=== PATIENT | female | born 1960 | race Caucasian/White ===

== ENCOUNTER 2016-11-02 17:10 | Emergency (ER) | payer OTHER ==
[2016-11-02 17:22] VITALS: BP 120/62; PULSE 87; TEMP 98.1; BMI 26.2
--- NOTE | 2016-11-02 17:39 | PDOC ---
History of Present Illness - General History Source: Care Provider Exam Limitations: Other (downs syndrome) <Merle Castillo - Last Filed: 11/02/16 17:36> - History of Present Illness Initial Comments: 11/02/16 17:39 The patient is a 56 year old female, with a significant past medical history of down syndrome, who presents to the emergency department with an abrasion to her right knee s/p mechanical fall. The patient denies loss of consciousness or pain. As per aide, a bandage was placed after the fall. The patient presents for evaluation because she is scheduled to go to a water [employer] tomorrow. She denies chest pain, shortness of breath, headache and dizziness. She denies fever, chills, nausea, vomit, diarrhea and constipation. She denies dysuria, frequency, urgency and hematuria. Allergies: NKDA PCP - <Melida Samson - Last Filed: 11/02/16 17:40> - General Chief Complaint: Injury Stated Complaint: RT KNEE PAIN Past History - Past Medical History Cardiac Disorders: Yes (cardiac valve defect) GI Disorders: Yes (colostomy) Hypercholesterolemia: Yes Psychiatric Problems: Yes (behavior d/o) Thyroid Disease: Yes (Hypothyroid) Other medical history: down's syndrome, hearing impairment (hearing aid rt ear) , dysphagia - Surgical History Abdominal Surgery: Yes (colostomy) - Psycho/Social/Smoking Cessation Hx Anxiety: No Suicidal Ideation: No Smoking Status: No Smoking History: Never smoked Have you smoked in the past 12 months: No Number of Cigarettes Smoked Daily: 0 Information on smoking cessation initiated: No Hx Alcohol Use: No Drug/Substance Use Hx: No Substance Use Type: None Hx Substance Use Treatment: No <Merle Castillo - Last Filed: 11/02/16 17:36> <Melida Samson - Last Filed: 11/02/16 17:40> - Past Medical History Allergies/Adverse Reactions: Allergies Allergy/AdvReac Type Severity Reaction Status Date / Time levofloxacin [From Levaquin] Allergy Mild Hives Verified 03/20/16 10:03 Quinolones Allergy Verified 03/20/16 10:03 Home Medications: Ambulatory Orders Calcium Phosphate Trib/Vit D3 [Citracal + D3 Gummies] 2 each PO BID 02/08/15 Clonazepam 0.25 mg PO TID 02/08/15 Clotrimazole 1 applic TP BID 02/08/15 Esomeprazole Mag Trihydrate [Nexium] 40 mg PO BID 02/08/15 Levothyroxine [Synthroid -] 0.0685 mg PO DAILY 02/08/15 Metoclopramide HCl 10 mg PO HS 02/08/15 Mineral Oil/Hydrophil Petrolat [Aquaphor Ointment] 1 applic TP TID 02/08/15 Oxybutynin Chloride 5 mg PO HS 02/08/15 Paroxetine HCl 30 mg PO DAILY 02/08/15 Polyethylene Glycol 3350 [Glycolax] 17 gm PO DAILY 02/08/15 Propylene Glycol/Peg 400 [Systane Ultra 0.3-0.4% Eye Drp] 1 drop OU BID Simvastatin [Zocor -] 20 mg PO HS 02/08/15 Denosumab [Prolia] 60 mg SQ ASDIR 03/20/16 Review of Systems - Review of Systems Able to Perform ROS?: Yes Comments:: 11/02/16 17:39 GENERAL/CONSTITUTIONAL: No fever or chills. No weakness. HEAD, EYES, EARS, NOSE AND THROAT: No change in vision. No ear pain or discharge. No sore throat. CARDIOVASCULAR: No chest pain or shortness of breath. RESPIRATORY: No cough, wheezing, or hemoptysis. GASTROINTESTINAL: No nausea, vomiting, diarrhea or constipation. GENITOURINARY: No dysuria, frequency, or change in urination. MUSCULOSKELETAL: No joint or muscle swelling or pain. No neck or back pain. SKIN: (+) abrasion to right knee. No rash NEUROLOGIC: No headache, vertigo, loss of consciousness, or change in strength/ sensation. ENDOCRINE: No increased thirst. No abnormal weight change. HEMATOLOGIC/LYMPHATIC: No anemia, easy bleeding, or history of blood clots. ALLERGIC/IMMUNOLOGIC: No hives or skin allergy. <Melida Samson - Last Filed: 11/02/16 17:40> *Physical Exam - Vital Signs Last Vital Signs Temp Pulse Resp BP Pulse Ox 98.1 F 87 18 120/62 100 11/02/16 17:10 11/02/16 17:10 11/02/16 17:10 11/02/16 17:10 11/02/16 17:10 <Merle Castillo - Last Filed: 11/02/16 17:36> - Vital Signs Last Vital Signs Temp Pulse Resp BP Pulse Ox 98.1 F 87 18 120/62 100 11/02/16 17:10 11/02/16 17:10 11/02/16 17:10 11/02/16 17:10 11/02/16 17:10 - Physical Exam Comments: 11/02/16 17:39 ADULT EXAM GENERAL: Awake, alert, and fully oriented, in no acute distress HEAD: No signs of trauma EYES: PERRLA, EOMI, sclera anicteric, conjunctiva clear ENT: Auricles normal inspection, hearing grossly normal, nares patent, oropharynx clear without exudates. Moist mucosa NECK: Normal ROM, supple, no lymphadenopathy, JVD, or masses LUNGS: Breath sounds equal, clear to auscultation bilaterally. No wheezes, and no crackles HEART: (+) 2/6 systolic murmur. Regular rate and rhythm, normal S1 and S2, norubs or gallops ABDOMEN: Soft, nontender, normoactive bowel sounds. No guarding, no rebound. No masses EXTREMITIES: (+) Right knee full ROM, no laxity. Right hip and ankle are nontender with full rom. Pelvis stable.Normal range of motion, no edema. No clubbing or cyanosis. No cords, erythema, or tenderness NEUROLOGICAL: GCS 15, moves all extremities purposefully. Cranial nerves II through XII grossly intact. Normal speech, normal gait SKIN: Skin: (+) superficial 2in x 2in abrasion to right knee. No active bleeding. Warm, Dry, normal turgor, no rashes or lesions noted. <Melida Samson - Last Filed: 11/02/16 17:40> Medical Decision Making - Medical Decision Making 11/02/16 17:40 The patient is a 56 year old female who presents s/p trip and fall with superficial abrasion to right knee. Plan: X Rays are unnecessary at this time. Motrin prn for pain, bacitracin for wound treatment. No pool for one week. <Melida Samson - Last Filed: 11/02/16 17:40> *DC/Admit/Observation/Transfer - Discharge Dispostion Admit: No <Merle Castillo - Last Filed: 11/02/16 17:36> - Attestations Scribe Attestion: 11/02/16 17:40 Documentation prepared by Melida Samson, acting as medical office specialist for Merle Castillo MD, <Melida Samson - Last Filed: 11/02/16 17:40> Diagnosis at time of Disposition: Abrasion - Discharge Dispostion Condition at time of disposition: Stable - Patient Instructions Printed Discharge Instructions: DI for Abrasion Additional Instructions: take ibuprofen 400 mg every 8 hrs only as needed for pain. apply bacitracin twice daily x one week. return for redness swelling fever or any concerns. you should avoid pool or water immersion for one week until healed.
== END 2016-11-02 17:53 | disposition home or self-care (01) ==
LOC: FER 17:10
DX: S80.211A Abrasion, right knee, initial encounter (principal); W18.30XA Fall on same level, unspecified, initial encounter; Y93.9 Activity, unspecified; Y92.9 Unspecified place or not applicable; Q90.9 Down syndrome, unspecified; E03.9 Hypothyroidism, unspecified; I51.9 Heart disease, unspecified; F91.9 Conduct disorder, unspecified
CPT/HCPCS: 99282-25

== ENCOUNTER 2017-01-27 13:46 | Emergency (ER) | payer OTHER ==
--- NOTE | 2017-01-27 13:52 | PDOC ---
History of Present Illness - General Stated Complaint: COUGH AND FEVER Time Seen by Provider: 01/27/17 13:49 - History of Present Illness Initial Comments: 01/27/17 13:51 Ms. kang is a 56 yo female with a significant past medical history of down' s syndrome, mitral valve prolapse, hypothyroidism, and frequent pneumonia who presents to the emergency department complaining of continued wet cough. Per jail aid, she had initially started coughing on Tuesday (6 days ago) and was taken to urgent care on Tuesday (3 days ago). They performed CXR showing "Moderately enlarged cardiomediastinal silhouette, mild prominence of the pulmonary vasculature. Minimal increased streaky changes in the right lung base may be from minimal atelectasis, early infiltrate is not excluded." Patient was given doxycycline, tessalon pearls, and a prednisone Rx. She is here today for re-evaluation as her cough has not gotten any better. Staff also reports home temperatures of 99.5 degrees. The patient denies headache and dizziness. Denies fever, chills, nausea, vomit, diarrhea and constipation. Denies dysuria, frequency, urgency and hematuria. Allergies: Levofloxacin, quinolones Past History - Past Medical History Allergies/Adverse Reactions: Allergies Allergy/AdvReac Type Severity Reaction Status Date / Time levofloxacin [From Levaquin] Allergy Mild Hives Verified 01/27/17 14:29 Quinolones Allergy Verified 01/27/17 14:29 Home Medications: Ambulatory Orders Clotrimazole 1 applic TP BID 02/08/15 Esomeprazole Mag Trihydrate [Nexium] 40 mg PO BID 02/08/15 Levothyroxine [Synthroid -] 0.0685 mg PO DAILY 02/08/15 Metoclopramide HCl 10 mg PO HS 02/08/15 Oxybutynin Chloride 5 mg PO HS 02/08/15 Paroxetine HCl 30 mg PO HS 02/08/15 Polyethylene Glycol 3350 [Glycolax] 17 gm PO DAILY 02/08/15 Simvastatin [Zocor -] 20 mg PO HS 02/08/15 Albuterol Sulfate Inhaler - [Ventolin Hfa Inhaler -] 2 inh PO Q6H PRN 01/27/17 Benzonatate [Tessalon Pearls -] 100 mg PO TID PRN 01/27/17 Calcium Citrate/Vitamin D3 [Calcium Citrate - Vit D Caplet] 2 each PO BID Clonazepam [Klonopin -] 0.25 mg PO TID 01/27/17 Doxycycline Hyclate [Vibramycin] 100 mg PO BID 01/27/17 Mupirocin Cream [Bactroban 2% Cream -] 1 applic TP TID 01/27/17 Prednisone [Deltasone] 20 mg PO TID 01/27/17 Cardiac Disorders: Yes (cardiac valve defect) GI Disorders: Yes (colostomy) Hypercholesterolemia: Yes Psychiatric Problems: Yes (behavior d/o) Thyroid Disease: Yes (Hypothyroid) - Surgical History Abdominal Surgery: Yes (colostomy) - Suicide/Smoking/Psychosocial Hx Smoking Status: No Smoking History: Never smoked Have you smoked in the past 12 months: No Number of Cigarettes Smoked Daily: 0 Hx Alcohol Use: No Drug/Substance Use Hx: No Substance Use Type: None Hx Substance Use Treatment: No Review of Systems - Review of Systems Comments:: 01/27/17 13:51 GENERAL/CONSTITUTIONAL: No fever or chills. No weakness. HEAD, EYES, EARS, NOSE AND THROAT: +Minor rhinorrhea reported. No change in vision. No ear pain or discharge. No sore throat. CARDIOVASCULAR: No chest pain or shortness of breath RESPIRATORY: +6 days of wet cough. No sputum observed. No wheezing or hemoptysis. GASTROINTESTINAL: No nausea, vomiting, diarrhea or constipation. GENITOURINARY: No dysuria, frequency, or change in urination. MUSCULOSKELETAL: No joint or muscle swelling or pain. No neck or back pain. SKIN: No rash NEUROLOGIC: No headache, vertigo, loss of consciousness, or change in strength/ sensation. ENDOCRINE: No increased thirst. No abnormal weight change HEMATOLOGIC/LYMPHATIC: No anemia, easy bleeding, or history of blood clots. ALLERGIC/IMMUNOLOGIC: No hives or skin allergy. *Physical Exam - Physical Exam Comments: 01/27/17 13:51 GENERAL: Awake, alert, and fully oriented, in no acute distress HEAD: No signs of trauma, normocephalic, atraumatic EYES: PERRLA, EOMI, sclera anicteric, conjunctiva clear ENT: Auricles normal inspection, hearing grossly normal, nares patent, oropharynx clear without exudates. Moist mucosa NECK: Normal ROM, supple, no lymphadenopathy, JVD, or masses LUNGS: +Exam limited by cooperation. Patient satting approx 94% before being put on 2L Nasal Cannula. Unable to appreciate any abnormal lung sounds. HEART: Regular rate and rhythm, normal S1 and S2, no murmurs, rubs or gallops, peripheral pulses normal and equal bilaterally. ABDOMEN: Soft, nontender, normoactive bowel sounds. No guarding, no rebound. No masses EXTREMITIES: Normal inspection, Normal range of motion, no edema. No clubbing or cyanosis. NEUROLOGICAL: Cranial nerves II through XII grossly intact. Normal speech, normal gait, no focal sensorimotor deficits SKIN: Warm, Dry, normal turgor, no rashes or lesions noted. ED Treatment Course - LABORATORY CBC & Chemistry Diagram: 01/27/17 14:25 01/27/17 14:25 Medical Decision Making - Medical Decision Making 01/27/17 17:43 Ms. Kang presents for re-evaluation after 6 days of wet cough and Antibiotics since tuesday. CXR positive for possible right lower lobe pneumonia. Patient already on Doxycycline 100mg BID 10 day course. Will advise to continue ABX to completion and return if any evolution of symptoms or failure to improve. *DC/Admit/Observation/Transfer Diagnosis at time of Disposition: Pneumonia Qualifiers: Pneumonia type: due to unspecified organism Laterality: right Lung location: lower lobe of lung Qualified Code(s): J18.1 - Lobar pneumonia, unspecified organism - Discharge Dispostion Disposition: HOME - Referrals Referrals: Heaven Goodman [Primary Care Provider] - - Patient Instructions Printed Discharge Instructions: DI for Pneumonia -- Adult Additional Instructions: Continue to take antibiotics as previously proscribed until completion. Please return if any increase in fever, cough, or failure to improve.
--- NOTE | 2017-01-27 14:23 | PDOC ---
Attending Attestation - Resident Resident Name: Lion Mcgrath - ED Attending Attestation I have performed the following: I have examined & evaluated the patient, The case was reviewed & discussed with the resident, I agree w/resident's findings & plan, Exceptions are as noted - HPI HPI: 01/27/17 16:50 56y F hx of downs syndrome, mvp, hypothyroidism pna presents with cough x ~6 days, went to urgent care, got an xray an was treated for possible pna. The pt returns due to symptoms not resolving. Per aide who is with the patient and knows the pt well, the pt has been doing well, acting the way she usually does, no appreciale fever, no change in mental status, food intake or behavior. No sob /cobos. Pt diod have some nasal congestion at onset of sypmtoms but that had resolved. no known sick contacts. vitals are normal, occasionally her o2 sat drops to 92 but immediately goes up to 98 with good wave form she is in no obvious dcomfort or distress GENERAL: The patient is awake, alert, HEAD: Normocephalic, atraumatic. EYES: extraocular movements intact, sclera anicteric, conjunctiva clear. ENT: Normal voice, Moist mucous membranes. LUNGS: Breath sounds equal, clear to auscultation bilaterally. No wheezes, no rhonchi, no rales. HEART: Regular rate and rhythm, normal S1 and S2 without murmur, rub or gallop. ABDOMEN: Soft, nontender, No guarding, no rebound. NEUROLOGICAL: No facial assymetry, baseline speech SKIN: Warm, Dry, normal turgor, differential includes possible pna, vs viral syndrom vs influenza labs reviewed and shows no leukocytosis cxr shows possible infiltrate vs atelectasis in r base will continue her current meds - d/w staff that if the pts mental status, behavior changes or she lookslike she is reathing hard to return to the ED. The pt has an appt with her doctor on tuesday. - Physicial Exam PE: 01/29/17 12:41 see above - Medical Decision Making 01/29/17 12:41 see above
[2017-01-27 14:40] LABS: BASOPHIL 0.3 % (0-2.0); MCH 33.4 pg (25.7-33.7); MCHC 33.7 g/dl (32.0-36.0); MEAN CELL VOLUME 99.1 fl (80-96); MEAN PLT VOLUME 9.3 fl (7.5-11.1); NEUTROPHILS 86.7 % (42.8-82.8); PLATELET COUNT 194 K/MM3 (134-434)
[2017-01-27 14:43] VITALS: BP 100/50; TEMP 98.4; BMI 25.8
[2017-01-27 14:57] LABS: ALBUMIN 3.2 g/dl (3.5-5.0); ALK PHOS 51 U/L (32-92); ANION GAP 6 (8-16); BILIRUBIN,TOTAL 0.5 mg/dl (0.2-1.0); CALCIUM 8.4 mg/dl (8.4-10.2); CO2 26 mmol/L (22-28); GLUCOSE,RANDOM 109 mg/dl (74-106); SGOT/AST 24 U/L (10-42); SGPT/ALT 10 U/L (10-40); TOT PROT 6.7 g/dl (6.4-8.3)
[2017-01-27 15:10] VITALS: PULSE 73
== END 2017-01-27 18:35 | disposition home or self-care (01) ==
LOC: FER 13:46 → SUPCPDRO 13:46 → FER 18:35
DX: J18.1 Lobar pneumonia, unspecified organism (principal); Q90.9 Down syndrome, unspecified; E03.9 Hypothyroidism, unspecified; I34.1 Nonrheumatic mitral (valve) prolapse
CPT/HCPCS: 36415; 71020-TC; 80053; 85025; 87804; 99282-25

== ENCOUNTER 2020-03-14 17:51 | Emergency (ER) | payer OTHER ==
[2020-03-14 17:57] VITALS: BP 93/47; PULSE 67; TEMP 98.2; BMI 19.3
[2020-03-14 20:44] LABS: EPI CELLS 6 /uL (0-25.1); HYALINE CASTS 13 /uL (0-3.1); URINE APPEARANCE CLEAR; URINE BACTERIA 455 /uL (0-1359); URINE BILIRUBIN NEGATIVE (NEGATIVE); URINE COLOR YELLOW; URINE GLUCOSE (UA) NEGATIVE (NEGATIVE); URINE KETONE TRACE (NEGATIVE); URINE LEUK ESTERASE 2+ (NEGATIVE); URINE NITRITE NEGATIVE (NEGATIVE); URINE PROTEIN 1+ (NEGATIVE); URINE WBC 396 /uL (0-25.8)
[2020-03-14] MEDS ORDERED: NITROFURANTOIN MACROCRYSTAL 50 MG CAPSULE (FP) ONE (20:51)
[2020-03-14] MEDS ORDERED: NITROFURANTOIN MACROCRYSTAL 50 MG CAPSULE (FP) PO SCH (21:00)
[2020-03-14] MEDS ORDERED: NITROFURANTOIN MACROCRYSTAL 50 MG CAPSULE (FP) PO ONE (21:00)
[2020-03-15 07:57] LABS: URINE RBC 105 /uL (0-23.9)
[2020-03-15 07:58] LABS: YEAST NON SEEN (NEGATIVE)
== END 2020-03-14 21:09 | disposition home or self-care (01) ==
LOC: JER 17:51
DX: N30.00 Acute cystitis without hematuria (principal)
CPT/HCPCS: 81003; 87086; 87186; 99284-25

== ENCOUNTER 2020-03-22 08:40 | Emergency (ER) | payer OTHER ==
[2020-03-22 08:55] VITALS: BMI 20.9
[2020-03-22] MEDS ORDERED: HALOPERIDOL LACTATE 5 MG/ML IM ONE (09:55)
[2020-03-22] MEDS ORDERED: HALOPERIDOL LACTATE 5 MG/ML ONE (09:56)
[2020-03-22 10:26] LABS: EOS % 0.4 % (0-4.5); HEMATOCRIT 41.5 % (32.4-45.2); HEMOGLOBIN 13.5 GM/dL (10.7-15.3); LYMPH % 20.6 % (8-40); MCH 32.8 pg (25.7-33.7); MCHC 32.6 g/dl (32.0-36.0); MEAN CELL VOLUME 100.9 fl (80-96); MEAN PLT VOLUME 10.8 fl (7.5-11.1); MONO % 5.1 % (3.8-10.2); NEUT % 72.9 % (42.8-82.8); PLATELET COUNT 231 K/MM3 (134-434); RBC 4.11 M/mm3 (3.60-5.2); RDW 14.2 % (11.6-15.6)
[2020-03-22 10:35] LABS: POTASSIUM 4.3 mmol/L (3.5-5.1)
[2020-03-22 10:37] LABS: CALCIUM 8.9 mg/dL (8.5-10.1)
[2020-03-22 10:38] LABS: ALBUMIN 3.3 g/dl (3.4-5.0); BLOOD UREA NITROGEN 17.2 mg/dL (7-18)
[2020-03-22 10:42] LABS: BILIRUBIN,TOTAL 0.6 mg/dL (0.2-1); TOT PROT 7.2 g/dl (6.4-8.2)
[2020-03-22] MEDS ORDERED: LORazepam 2 MG/ML SDV VIAL ONE ×2 (10:47→12:31)
[2020-03-22 15:50] VITALS: BP 134/55; PULSE 84; TEMP 98
== END 2020-03-22 15:46 | disposition home or self-care (01) ==
LOC: JER 08:40
PROC: 3E023KZ Introduction of Other Diagnostic Substance into Muscle, Percutaneous Approach (ICD-10-PCS; principal; 2020-03-22)
PROC: 3E033NZ Introduction of Analgesics, Hypnotics, Sedatives into Peripheral Vein, Percutaneous Approach (ICD-10-PCS; 2020-03-22)
DX: K59.09 Other constipation (principal); Z93.3 Colostomy status
CPT/HCPCS: 36415; 74177-TC; 80053; 85025; 99285-25; Q9967

== ENCOUNTER 2020-03-27 22:05 | Emergency (ER) | payer OTHER ==
[2020-03-27 22:24] VITALS: PULSE 78; BMI 20.2
[2020-03-27] MEDS ORDERED: LORazepam 2 MG/ML SDV VIAL ONE ×2 (22:41→23:17)
[2020-03-27 23:34] LABS: URINE APPEARANCE CLEAR; URINE BILIRUBIN NEGATIVE (NEGATIVE); URINE COLOR YELLOW; URINE GLUCOSE (UA) NEGATIVE (NEGATIVE); URINE KETONE NEGATIVE (NEGATIVE); URINE LEUK ESTERASE NEGATIVE (NEGATIVE); URINE NITRITE NEGATIVE (NEGATIVE); URINE PROTEIN NEGATIVE (NEGATIVE)
[2020-03-27] MEDS ORDERED: LACTATED RINGERS SOLUTION 1,000 ML/1,000 ML INFUS.BAG IV STA (23:43)
[2020-03-28 00:02] LABS: BASO % 1.4 % (0-2.0); EOS % 0.4 % (0-4.5); HEMATOCRIT 39.1 % (32.4-45.2); HEMOGLOBIN 12.9 GM/dL (10.7-15.3); LYMPH % 15.3 % (8-40); MCHC 32.9 g/dl (32.0-36.0); MEAN CELL VOLUME 103.3 fl (80-96); MONO % 4.4 % (3.8-10.2); NEUT % 78.5 % (42.8-82.8); PLATELET COUNT 193 K/MM3 (134-434); RBC 3.79 M/mm3 (3.60-5.2); RDW 14.2 % (11.6-15.6); WHITE BLOOD COUNT 9.5 K/mm3 (4.0-10.0)
[2020-03-28 01:18] LABS: POTASSIUM 4.2 mmol/L (3.5-5.1)
[2020-03-28 01:20] LABS: ALBUMIN 3.2 g/dl (3.4-5.0); BLOOD UREA NITROGEN 20.6 mg/dL (7-18); CALCIUM 8.6 mg/dL (8.5-10.1)
[2020-03-28 01:25] LABS: BILIRUBIN,TOTAL 0.6 mg/dL (0.2-1); TOT PROT 6.9 g/dl (6.4-8.2)
[2020-03-28 01:29] VITALS: BP 116/78
== END 2020-03-28 02:10 | disposition home or self-care (01) ==
LOC: JER 22:05
PROC: 3E033NZ Introduction of Analgesics, Hypnotics, Sedatives into Peripheral Vein, Percutaneous Approach (ICD-10-PCS; principal; 2020-03-27)
PROC: 3E033NZ Introduction of Analgesics, Hypnotics, Sedatives into Peripheral Vein, Percutaneous Approach (ICD-10-PCS; 2020-03-27)
DX: S09.90XA Unspecified injury of head, initial encounter (principal); S00.03XA Contusion of scalp, initial encounter
CPT/HCPCS: 36415; 70450-TC; 80053; 81003; 85025; 87086; 99284-25

== ENCOUNTER 2021-05-08 01:17 | Emergency (ER) | payer OTHER ==
[2021-05-08 01:35] VITALS: BP 123/81; PULSE 60; TEMP 98.1; BMI 25.4
[2021-05-08] MEDS ORDERED: MIDAZOLAM HCL 5 MG/1 ML Single Dose Vial IM ONE (02:55)
[2021-05-08] MEDS ORDERED: MIDAZOLAM HCL 2 MG/2 ML SINGLE DOSE VIAL ONE (03:09)
== END 2021-05-08 05:10 | disposition home or self-care (01) ==
LOC: JER 01:17
PROC: 3E023NZ Introduction of Analgesics, Hypnotics, Sedatives into Muscle, Percutaneous Approach (ICD-10-PCS; principal; 2021-05-08)
DX: S09.90XA Unspecified injury of head, initial encounter (principal); W01.0XXA Fall on same level from slipping, tripping and stumbling without subsequent striking against object, initial encounter
CPT/HCPCS: 70450-TC; 99284-25

== ENCOUNTER 2021-10-23 10:37 | Inpatient (IN) | payer OTHER ==
[2021-10-23 11:28] VITALS: BMI 15.6
[2021-10-23 12:59] LABS: HEMATOCRIT 39.2 % (32.4-45.2); HEMOGLOBIN 13.1 GM/dL (10.7-15.3); MCH 34.3 pg (25.7-33.7); MCHC 33.4 g/dl (32.0-36.0); MEAN CELL VOLUME 102.6 fl (80-96); MEAN PLT VOLUME 9.4 fl (7.5-11.1); PLATELET COUNT 194 10^3/uL (134-434); RBC 3.82 M/mm3 (3.60-5.2); RDW 13.9 % (11.6-15.6); WHITE BLOOD COUNT 5.6 K/mm3 (4.0-10.0)
[2021-10-23 13:06] LABS: INR 1.03 (0.83-1.09); PH,URINE 7.5 (5.0-8.0); PROTHROMBIN TIME (PATIENT) 11.8 SEC (9.7-13.0); URINE APPEARANCE CLEAR; URINE BILIRUBIN NEGATIVE (NEGATIVE); URINE COLOR YELLOW; URINE GLUCOSE (UA) NEGATIVE (NEGATIVE); URINE KETONE NEGATIVE (NEGATIVE); URINE LEUK ESTERASE NEGATIVE (NEGATIVE); URINE NITRITE NEGATIVE (NEGATIVE); URINE PROTEIN NEGATIVE (NEGATIVE); URINE UROBILINOGEN 0.2 mg/dL (0.2-1.0)
[2021-10-23 13:09] LABS: ACTIVATED PTT 29.9 SECONDS (25.2-36.5)
[2021-10-23] MEDS ORDERED: AZITHROMYCIN IVPB 500 MG in DEXTROSE 5%-WATER - 250 ML IVPB ONE (13:12)
[2021-10-23] MEDS ORDERED: CEFTRIAXONE 1,000 MG in DEXTROSE 5%-WATER - 50 ML IVPB ONE (13:15)
[2021-10-23 13:28] LABS: ALBUMIN 3.6 g/dl (3.4-5.0); BLOOD UREA NITROGEN 26.3 mg/dL (7-18); CALCIUM 8.5 mg/dL (8.5-10.1)
[2021-10-23 13:31] LABS: CREATININE 0.8 mg/dL (0.55-1.3)
[2021-10-23 13:33] LABS: BILIRUBIN,TOTAL 0.6 mg/dL (0.2-1); VENOUS BASE EXCESS 0.1 mmol/L (-2-2); VENOUS O2 SATURATION 41.9 % (70-80); VENOUS PCO2 60.4 mmHg (38-52); VENOUS PH 7.285 (7.310-7.410)
[2021-10-23] MEDS ORDERED: AZITHROMYCIN IVPB 500 MG/250 ML BAG IVPB ONE (13:40)
[2021-10-23] MEDS ORDERED: CEFTRIAXONE 1 GM/50 ML BAG ONE (13:40)
[2021-10-23 15:21] LABS: ARTERIAL BLOOD GAS BASE EXCESS 2.9 mmol/L (-2-2); ARTERIAL BLOOD GAS PO2 105.2 mmHg (80-100); ARTERIAL BLOOD GAS pH 7.437 (7.350-7.450)
[2021-10-23 15:23] LABS: ALLENS TEST POSITIVE
[2021-10-23 15:24] LABS: PT'S TEMP 98.4
[2021-10-23] MEDS ORDERED: [UNRECOGNIZED DRUG - OTHER] PO SCH (22:00)
[2021-10-23] MEDS ORDERED: ATORVASTATIN CA 10 MG TABLET (FP) PO SCH (22:00)
[2021-10-23] MEDS ORDERED: PARoxetine HCL 30 MG TABLET PO SCH (22:00)
[2021-10-23] MEDS ORDERED: CALCIUM CITRATE PO SCH (22:00)
[2021-10-23] MEDS ORDERED: METOCLOPRAMIDE HCL 10 MG TABLET (FP) PO SCH (22:00)
[2021-10-23] MEDS ORDERED: VITAMIN D3 PO SCH (22:00)
[2021-10-23] MEDS ORDERED: clonazePAM 0.5 MG TABLET ONE (23:08)
[2021-10-23] MEDS ORDERED: PANTOPRAZOLE 40 MG TABLET PO ONE (23:08)
[2021-10-23] MEDS ORDERED: PARoxetine HCL 10 MG TABLET ONE (23:09)
[2021-10-23] MEDS ORDERED: METOCLOPRAMIDE HCL 10 MG TABLET (FP) PO ONE (23:09)
[2021-10-23] MEDS ORDERED: ATORVASTATIN CA 10 MG TABLET (FP) ONE (23:09)
[2021-10-23] MEDS: clonazePAM 0.5 MG TABLET PO SCH (23:20)
[2021-10-23] MEDS: PANTOPRAZOLE 40 MG TABLET PO SCH (23:20)
[2021-10-24] MEDS: POLYETHYLENE GLYCOL (HEALTHYLAX) 3350 17 GM PACKET PO SCH ×2 (00:27→10:29)
[2021-10-24] MEDS: CLOTRIMAZOLE 1% CREAM TP SCH ×2 (00:27→10:30)
[2021-10-24] MEDS: ARTIFICIAL TEARS (POLYVINYL ALCOHOL) OPTH DROPS OU SCH ×2 (00:27→10:31)
[2021-10-24] MEDS: clonazePAM 0.5 MG TABLET PO SCH (06:41)
[2021-10-24] MEDS ORDERED: LEVOTHYROXINE NA 75 MCG TABLET (FP) PO SCH (07:00)
[2021-10-24] MEDS ORDERED: PARoxetine HCL 10 MG TABLET PO SCH (07:16)
[2021-10-24] MEDS ORDERED: AZITHROMYCIN IVPB 250 MG in DEXTROSE 5%-WATER - 250 ML IVPB SCH (10:00)
[2021-10-24] MEDS ORDERED: CEFTRIAXONE 1 GM in DEXTROSE 5%-WATER - 50 ML IVPB SCH (10:00)
[2021-10-24] MEDS ORDERED: ENOXAPARIN NA (PORCINE) 40 MG/0.4 ML DISP.SYRIN SQ SCH (10:00)
[2021-10-24] MEDS ORDERED: OXYBUTYNIN CHLORIDE 5 MG TABLET PO SCH (10:00)
[2021-10-24] MEDS ORDERED: LEVOTHYROXINE NA 25 MCG TABLET (FP) PO SCH (10:00)
[2021-10-24] MEDS ORDERED: cefTRIAXone SODIUM 1 GM VIAL ONE (10:05)
[2021-10-24] MEDS ORDERED: DEXTROSE 5%-WATER - 50 ML IVPB ONE (10:05)
[2021-10-24] MEDS: PANTOPRAZOLE 40 MG TABLET PO SCH (10:29)
[2021-10-24 10:40] LABS: HEMOGLOBIN 13.8 GM/dL (10.7-15.3); MCH 34.4 pg (25.7-33.7); MCHC 33.6 g/dl (32.0-36.0); MEAN CELL VOLUME 102.6 fl (80-96); MEAN PLT VOLUME 9.3 fl (7.5-11.1); PLATELET COUNT 177 10^3/uL (134-434); RDW 13.7 % (11.6-15.6); WHITE BLOOD COUNT 4.6 K/mm3 (4.0-10.0)
[2021-10-24 11:16] LABS: CALCIUM 8.3 mg/dL (8.5-10.1); MAGNESIUM 2.5 mg/dL (1.8-2.4)
[2021-10-24 11:17] LABS: BLOOD UREA NITROGEN 23.8 mg/dL (7-18)
[2021-10-24 11:19] LABS: PHOSPHOROUS 2.6 mg/dL (2.5-4.9)
[2021-10-24] MEDS ORDERED: BACITRACIN 15 GM TUBE TOPICAL OINTMENT TP SCH (12:30)
[2021-10-24 13:18] VITALS: BP 116/66; PULSE 80; TEMP 97.8
== END 2021-10-24 15:22 | disposition home or self-care (01) | DRG 194 ==
LOC: JER 10:37 → JERBED 13:33 → J8W 10-24 00:25 → OBSVTOIN 10-24 10:43
PROVIDERS: ADMIT Internal Medicine; ATTEND Internal Medicine
DX: J18.9 Pneumonia, unspecified organism (principal); R64 Cachexia; J98.11 Atelectasis; E87.2 Acidosis; Z68.1 Body mass index [BMI] 19.9 or less, adult; F03.90 Unspecified dementia, unspecified severity, without behavioral disturbance, psychotic disturbance, mood disturbance, and anxiety; Q90.9 Down syndrome, unspecified; E03.9 Hypothyroidism, unspecified; I34.1 Nonrheumatic mitral (valve) prolapse; E78.5 Hyperlipidemia, unspecified
CPT/HCPCS: 0241U-QW; 36415; 36600; 71045-TC-FY; 80048; 80053; 81003; 82803; 83605; 83735; 84100; 85027; 85610; 85730; 87040; 87086; 93005; 93010; 99285-25; G0378

== ENCOUNTER 2022-09-09 13:55 | Emergency (ER) | payer OTHER ==
[2022-09-09 14:05] VITALS: BP 99/76; RESP 18; TEMP 97.7; BMI 15.5
[2022-09-09 14:33] VITALS: PULSE 86
== END 2022-09-09 15:25 | disposition home or self-care (01) ==
LOC: FER 13:55
DX: J18.9 Pneumonia, unspecified organism (principal)
CPT/HCPCS: 0241U-QW; 71045-TC-FY; 99284-25